=== PATIENT | male | born 1960 | race Caucasian/White ===

== ENCOUNTER → 2016-10-26 | Outpatient (CLI) | payer OTHER ==
--- NOTE | 2016-10-26 15:45 | REP ---
Clinical: Lateral foot pain . Technique: AP, lateral, bilateral oblique views left foot . Findings: The osseous structures and joint spaces are intact and normal. There is no evidence for acute fracture or dislocation. Surrounding soft tissues are unremarkable. No subcutaneous emphysema or radiodense foreign body. Impression: Normal examination. No obvious acute abnormality by radiographic evaluation. Signed by Pantera Marie MD 10/26/2016 03:37 P
--- NOTE | 2016-10-26 15:46 | REP ---
Clinical: Lateral pain. Technique: AP, lateral, bilateral oblique views of the left ankle. Findings: Age-related changes are appreciated. No evidence for acute or obvious old fracture. Joint spaces and ankle mortise are intact. Mild swelling cannot be excluded. Impression: Mild soft tissue swelling cannot be excluded. Mild age-related changes without acute/chronic fracture or dislocation. Signed by Pantera Marie MD 10/26/2016 03:38 P
== END ==
LOC: M WUC 15:01
PROVIDERS: ATTEND Physician Assistant
DX: M19.072 Primary osteoarthritis, left ankle and foot (principal)

== ENCOUNTER → 2018-05-17 | Outpatient (REF) | payer OTHER ==
[2018-05-19 00:06] LABS: Lyme Disease IgG/IgM Antibodie <0.91 ISR (0.00-0.90); Lyme Disease IgM Ab Quantitati <0.80 index (0.00-0.79)
== END ==
LOC: M LAB REF 12:14
DX: M79.10 Myalgia, unspecified site (principal); R00.2 Palpitations; R07.89 Other chest pain
CPT/HCPCS: 86617

== ENCOUNTER → 2023-10-03 | Outpatient (CLI) | payer OTHER | LOC: M WUC 11:34 | PROVIDERS: ATTEND Internal Medicine | DX: M25.531 Pain in right wrist (principal) ==

== ENCOUNTER → 2024-02-13 | Outpatient (CLI) | payer OTHER | LOC: M WUC 10:44 | PROVIDERS: ATTEND Student in an Organized Health Care Education/Training Program | DX: M79.674 Pain in right toe(s) (principal) ==

== ENCOUNTER → 2024-04-20 | Outpatient (CLI) | payer OTHER | LOC: M WUC 08:30 | PROVIDERS: ATTEND Nurse Practitioner Family | DX: R07.82 Intercostal pain (principal) ==

== ENCOUNTER → 2024-05-10 | Outpatient (CLI) | payer OTHER | LOC: M WUC 08:36 | PROVIDERS: ATTEND Internal Medicine | DX: R06.02 Shortness of breath (principal) ==

== ENCOUNTER → 2025-04-03 | Outpatient (CLI) | payer MEDICARE, OTHER | LOC: M WUC 13:26 | DX: M25.531 Pain in right wrist (principal) ==